=== PATIENT | female | born 1965 | race American Indian/Alaskan Native ===

== ENCOUNTER 2017-04-30 11:47 | Emergency (ER) | payer MEDICAID ==
--- NOTE | 2017-04-30 16:07 | Emergency Department Report ---
ED General Adult HPI - General Chief complaint: Seizure Stated complaint: SEIZURE Time Seen by Provider: 04/30/17 14:57 Source: patient, EMS Mode of arrival: Stretcher Limitations: Altered Mental Status - History of Present Illness Initial comments: Apparently the patient was in a physician's office when she had a generalized seizure. She arrived postictal. At the time of my encounter she was able to tell me that she was not compliant with her Keppra. It appears one time she was on 750 mg 3 times a day. I do not know her last dose schedule. Apparently someone thought that she lacerated her tongue and that patient was complaining about this. However on my encounter she complained of a mild headache only. She was not found to have a lacerated tongue. She had evidence of old healed tongue abrasions however. -: Sudden Location: head Radiation: non-radiation Improves with: none Worsens with: none Associated Symptoms: denies other symptoms Treatments Prior to Arrival: none - Related Data Home Medications Medication Instructions Recorded Confirmed Last Taken Albuterol Sulfate [Proventil HFA] 2 puff INHALATION PRN PRN 03/03/14 03/08/14 Diazepam 1 tab PO BID 03/03/14 03/08/14 03/07/14 HYDROcodone/ACETAMINOPHEN 1 tab PO PRN PRN 03/03/14 03/08/14 03/07/14 [Hydrocodon-Acetaminoph 7.5-325] Levothyroxine [Synthroid] 1 tab PO DAILY 03/03/14 03/08/14 03/07/14 Loratadine 1 tab PO DAILY 03/03/14 03/08/14 03/07/14 levETIRAcetam [Keppra TAB] 750 mg PO TID 03/03/14 03/08/14 03/08/14 Previous Rx's Medication Instructions Recorded Last Taken Type levETIRAcetam [Keppra TAB] 750 mg PO BID #60 tablet 04/30/17 Unknown Rx Allergies Allergy/AdvReac Type Severity Reaction Status Date / Time No Known Allergies Allergy Verified 03/03/14 09:05 ED Review of Systems ROS: Stated complaint: SEIZURE Other details as noted in HPI Comment: All other systems reviewed and negative ED Past Medical Hx - Past Medical History Previous Medical History?: Yes Hx Hypertension: No Hx Liver Disease: No Hx Seizures: Yes Hx Asthma: No Hx COPD: Yes (ON 02 PRN) Hx Tuberculosis: No Hx HIV: No - Surgical History Past Surgical History?: No - Social History Smoking Status: Never Smoker Substance Use Type: None - Medications Home Medications: Home Medications Medication Instructions Recorded Confirmed Last Taken Type Albuterol Sulfate [Proventil HFA] 2 puff INHALATION PRN PRN 03/03/14 03/08/14 History Diazepam 1 tab PO BID 03/03/14 03/08/14 03/07/14 History HYDROcodone/ACETAMINOPHEN 1 tab PO PRN PRN 03/03/14 03/08/14 03/07/14 History [Hydrocodon-Acetaminoph 7.5-325] Levothyroxine [Synthroid] 1 tab PO DAILY 03/03/14 03/08/14 03/07/14 History Loratadine 1 tab PO DAILY 03/03/14 03/08/14 03/07/14 History levETIRAcetam [Keppra TAB] 750 mg PO TID 03/03/14 03/08/14 03/08/14 History levETIRAcetam [Keppra TAB] 750 mg PO BID #60 tablet 04/30/17 Unknown Rx ED Physical Exam - General Limitations: No Limitations General appearance: alert, in no apparent distress - Head Head exam: Present: atraumatic, normocephalic - Eye Eye exam: Present: normal appearance, PERRL, EOMI. Absent: scleral icterus - ENT ENT exam: Present: mucous membranes moist, other (tongue without evidence of acute injury. There are old healed areas of previous injury ) - Neck Neck exam: Present: normal inspection. Absent: tenderness, meningismus - Respiratory Respiratory exam: Present: normal lung sounds bilaterally. Absent: respiratory distress - Cardiovascular Cardiovascular Exam: Present: regular rate, normal rhythm. Absent: systolic murmur, diastolic murmur, rubs, gallop - GI/Abdominal GI/Abdominal exam: Present: soft, normal bowel sounds. Absent: distended, tenderness, guarding, rebound, rigid - Extremities Exam Extremities exam: Present: normal inspection - Back Exam Back exam: Present: normal inspection - Neurological Exam Neurological exam: Present: alert, oriented X3, CN II-XII intact. Absent: motor sensory deficit - Psychiatric Psychiatric exam: Present: normal mood, flat affect - Skin Skin exam: Present: warm, dry, intact, normal color. Absent: rash ED Course Vital Signs 04/30/17 12:05 Temperature 98.2 F Pulse Rate 71 Respiratory 22 Rate Blood Pressure 135/91 O2 Sat by Pulse 96 Oximetry - Reevaluation(s) Reevaluation #1: Patient has clear to return to her baseline. She will be discharged and given a prescription for Keppra. She was given an oral dose here and something for her mild headache. 04/30/17 18:42 ED Medical Decision Making - Lab Data Result diagrams: 04/30/17 15:58 04/30/17 15:58 Laboratory Results - last 24 hr 04/30/17 04/30/17 04/30/17 13:07 15:58 15:58 WBC 4.8 RBC 4.26 Hgb 11.3 Hct 34.4 MCV 81 MCH 26 L MCHC 33 RDW 13.9 Plt Count 280 Lymph % (Auto) 30.5 [place] % (Auto) 9.4 H Eos % (Auto) 1.3 Baso % (Auto) 1.1 Lymph # 1.5 [place] # 0.4 Eos # 0.1 Baso # 0.1 Seg Neutrophils % 57.7 Seg Neutrophils # 2.7 Sodium 138 Potassium 4.2 Chloride 101.6 Carbon Dioxide 18 L Anion Gap 23 BUN 13 Creatinine 0.9 Estimated GFR > 60 BUN/Creatinine Ratio 14 Glucose 84 POC Glucose 72 Calcium 9.7 Critical care attestation.: If time is entered above; I have spent that time in minutes in the direct care of this critically ill patient, excluding procedure time. ED Disposition Clinical Impression: Seizure, History of seizure disorder Disposition: -01 TO HOME OR SELFCARE Is pt being admited?: No Does the pt Need Aspirin: No Condition: Stable Instructions: Recurrent Seizures Adult (ED), Epilepsy (ED) Additional Instructions: Do not drive and or operate machinery. Follow up with her primary care provider. Rx Keppra. Return any acute change or problem. Prescriptions: levETIRAcetam [Keppra TAB] 750 mg PO BID #60 tablet Referrals: XIMENA MORGAN MD [Primary Care Provider] - 3-5 Days Time of Disposition: 18:43
[2017-04-30 16:27] LABS: Basophils % (Auto) 1.1 % (0.0-1.8); Eosinophils % (Auto) 1.3 % (0.0-4.3); Hematocrit 34.4 % (30.3-42.9); Hemoglobin 11.3 gm/dl (10.1-14.3); Mean Corpuscular HGB Conc 33 % (30-34); Mean Corpuscular Hemoglobin 26 pg (28-32); Mean Corpuscular Volume 81 fl (79-97); Platelet Count 280 K/mm3 (140-440); Red Blood Count 4.26 M/mm3 (3.65-5.03); Red Cell Distribution Width 13.9 % (13.2-15.2); White Blood Count 4.8 K/mm3 (4.5-11.0)
[2017-04-30 16:46] LABS: Anion Gap 23 mmol/L; BUN/Creatinine Ratio 14; Blood Urea Nitrogen 13 mg/dL (7-17); Calcium 9.7 mg/dL (8.4-10.2); Carbon Dioxide 18 mmol/L (22-30); Chloride 101.6 mmol/L (98-107); Glucose 84 mg/dL (65-100); Potassium 4.2 mmol/L (3.6-5.0); Sodium 138 mmol/L (137-145)
[2017-04-30] MEDS ORDERED: KEPPRA PO ONE (18:05)
[2017-04-30] MEDS ORDERED: ULTRAM PO ONE (18:05)
[2017-04-30 20:15] VITALS: BP 112/74
== END 2017-04-30 20:15 | disposition home or self-care (01) ==
LOC: ED 11:47
DX: G40.909 Epilepsy, unspecified, not intractable, without status epilepticus (principal)
CPT/HCPCS: 36415; 80048; 82962; 85025

== ENCOUNTER 2018-12-10 11:48 | Day surgery (SDC) | payer MEDICARE ==
[~2018-12-10 11:48] MED LIST: IOPIDINE ONE; NEOFRIN ONE
[2018-12-10] MEDS ORDERED: IOPIDINE OD ONE (12:10)
[2018-12-10] MEDS ORDERED: NEOFRIN OD ONE (12:11)
[2018-12-10] MEDS ORDERED: MYDRIACYL OD ONE (12:12)
[2018-12-10 12:25] VITALS: BP 112/80
== END 2018-12-10 13:04 | disposition home or self-care (01) ==
LOC: OR 11:48
PROVIDERS: ATTEND Specialist
DX: H26.491 Other secondary cataract, right eye (principal); J44.9 Chronic obstructive pulmonary disease, unspecified; E03.9 Hypothyroidism, unspecified; F32.9 Major depressive disorder, single episode, unspecified; F41.9 Anxiety disorder, unspecified; Z98.890 Other specified postprocedural states; Z87.891 Personal history of nicotine dependence; Z79.899 Other long term (current) drug therapy
CPT/HCPCS: 82962

== ENCOUNTER 2018-12-31 11:27 | Day surgery (SDC) | payer MEDICARE ==
[~2018-12-31 11:27] MED LIST changes: +MYDRIACYL ONE
[2018-12-31] MEDS ORDERED: IOPIDINE OS ONE (11:48)
[2018-12-31] MEDS ORDERED: MYDRIACYL OS ONE (11:49)
[2018-12-31] MEDS ORDERED: NEOFRIN OS ONE (11:49)
[2018-12-31 15:01] VITALS: BP 132/101
== END 2018-12-31 14:24 | disposition home or self-care (01) ==
LOC: OR 11:27
PROVIDERS: ATTEND Specialist
DX: H26.492 Other secondary cataract, left eye (principal); J44.9 Chronic obstructive pulmonary disease, unspecified; E03.9 Hypothyroidism, unspecified; F32.9 Major depressive disorder, single episode, unspecified; F41.9 Anxiety disorder, unspecified; Z98.890 Other specified postprocedural states; Z79.899 Other long term (current) drug therapy; Z90.710 Acquired absence of both cervix and uterus; Z98.41 Cataract extraction status, right eye; Z98.42 Cataract extraction status, left eye

== ENCOUNTER → 2019-01-07 | Outpatient (CLI) | payer MEDICARE | END | disposition home or self-care (01) | LOC: SLR 11:00 | PROVIDERS: ATTEND Otolaryngology | DX: G47.33 Obstructive sleep apnea (adult) (pediatric) (principal); R06.83 Snoring | CPT/HCPCS: 95810 ==

== ENCOUNTER → 2019-01-20 | Outpatient (CLI) | payer MEDICARE | END | disposition home or self-care (01) | LOC: SLR 11:00 | PROVIDERS: ATTEND Otolaryngology | DX: G47.33 Obstructive sleep apnea (adult) (pediatric) (principal); R40.0 Somnolence; R06.83 Snoring; E66.9 Obesity, unspecified; J44.9 Chronic obstructive pulmonary disease, unspecified; Z90.710 Acquired absence of both cervix and uterus; E03.9 Hypothyroidism, unspecified | CPT/HCPCS: 95811 ==